=== PATIENT | female | born 1985 | race Caucasian/White ===

== ENCOUNTER 2018-07-21 06:35 | Inpatient (IN) | payer OTHER ==
[2018-07-21] MEDS ORDERED: OXYTOCIN/RINGERS LACTATE 1,000 ML IV PRN (10:42)
[2018-07-21] MEDS ORDERED: LR 1,000 ML IV PRN (10:42)
[2018-07-21] MEDS ORDERED: AMMONIA AROMATIC 1 EACH AMP IH PRN (10:42)
[2018-07-21] MEDS ORDERED: OLIVE OIL 118 ML BTL MISC PRN (10:42)
[2018-07-21] MEDS ORDERED: IBUPROFEN 600 MG TAB PO PRN (10:42)
[2018-07-21] MEDS ORDERED: MISOPROSTOL 200 MCG TAB PO PRN (10:42)
[2018-07-21] MEDS ORDERED: LIDOCAINE 1% 300 MG/30 ML SDV SC PRN (10:42)
[2018-07-21] MEDS ORDERED: EPSOM SALT 454 GM TP PRN (10:42)
[2018-07-21] MEDS ORDERED: TERBUTALINE SULFATE 1 MG/ML VIAL IV PRN (10:42)
--- NOTE | 2018-07-21 10:42 | PDGENHP ---
History and Physical History and Physical: CARE: [facility] HPI: Patient is a 33 yo G 1 P 0 @ 40 weeks who presents to L&D with complaints of strong uterine contractions since 0330 this AM. She denies LOF or bleeding. Reports + movement. EDC: 07/21/18 which is based on LMP: 08/26/17 which is known and consistent with Ultrasound at 7 weeks. Her is complicated by: anxiety, no medications during . Review of Systems: Constitutional: Denies any fever, chills, or fatigue HEENT: denies any visual changes, difficulty swallowing, hearing loss Cardiovascular: Denies any chest pain, palpitations, leg swelling Respiratory: denies any cough, wheezing, or shortness of breath GI: Denies any nausea, vomiting, diarrhea, constipation : denies any dysuria, urgency, frequency, vaginal bleeding Musculoskeletal: denies any muscle or bone pain Skin: denies any rashes Neuro: denies any headache, seizures, lightheadedness, dizziness, or loss of consciousness Psychiatric: denies any depression, anxiety, or SI/HI thoughts HISTORY: Previous OB history: nullip Social history: , works [employer] Family history: mom non-hodgkins lymphoma Past medical history: anxiety, meds in past Past surgical history: none Medications: PNV Allergies (list reaction): NKDA LABS: Rh: )+ ABS: Neg Rubella: Immune HbsAg: NR HIV: NR VDRL: NR 1hr: 99 GC: Neg Chlamydia: Neg Pap: Normal 2013 GBS: neg BMI: (prepreg) 22 PHYSICAL EXAM: Constitutional: WN, A&Ox3 HEENT: normocephalic atraumatic, supple Heart: RRR, no murmur Chest: CTA-B Skin: warm, dry, intact Abdomen: Soft, nontender, gravid SVE: /-1 Extremities: trace edema, negative homans sign Neuro: grossly normal Psych: normal affect assessment: FHT baseline 115, +accels, no decels, moderate variability Contractions: toco q 4-7 min Assessment: 1) 33 yo with IUP@ 40 weeks 2) GBS neg 3) Cat 1 FHR tracing Plan: 1) Admit to L&D 2) Anticipate
[2018-07-21] MEDS ORDERED: LIDOCAINE 1% 300 MG/30 ML SDV ONE (13:27)
[2018-07-21] MEDS ORDERED: TERBUTALINE SULFATE 1 MG/ML VIAL ONE (13:28)
[2018-07-21] MEDS ORDERED: AMMONIA AROMATIC 1 EACH AMP IH ONE (13:28)
[2018-07-21] MEDS ORDERED: OXYTOCIN 10 UNIT/ML VIAL ONE (13:28)
[2018-07-21] MEDS ORDERED: MISOPROSTOL 200 MCG TAB ONE (13:28)
[2018-07-21] MEDS ORDERED: OLIVE OIL 118 ML BTL MISC ONE (13:28)
[2018-07-21 13:39] LABS: PLATELET COUNT 134 10^3/uL (150-400)
--- NOTE | 2018-07-21 14:31 | OBPROG ---
Labor Progress Note Assessment/Plan: Assessment: 1. active labor 2. cat 1 FHT Plan: 1. anticipate 07/21/18 14:29 Subjective/Intrapartum Course: 07/21/18 14:29 pt coping well with ctx. FOB at bedside. States that she is feeling pressure with some contractions, denies LOF. Objective: 07/21/18 12:50 Patient ABO/Rh O POSITIVE 07/21/18 12:50 VSS - SVE Dilation (cm): 6 Effacement (%): 90 Station: -1 Membranes: Intact - Contraction Pattern Assessment Current Contraction Pattern: Regular - FHR Assessment Tello FHR (bpm): 115 FHR Pattern Variability: Moderate FHR Category: 1 Oxytocin Orders Assessment - Pre-Induction/Augmentation Assessment Gestational Age: 40 week(s) and 0 day(s) ICD10 Worksheet Patient Problems: Problems Problem Status Onset Normal labor Acute - ICD10 Problem Qualifiers (1) Normal labor
--- NOTE | 2018-07-21 15:54 | OBPROG ---
Labor Progress Note Assessment/Plan: Assessment: 1. active labor 2. cat 1 FHT Plan: 1. anticipate 07/21/18 14:29 07/21/18 15:53 same as above Subjective/Intrapartum Course: 07/21/18 14:29 pt coping well with ctx. FOB at bedside. States that she is feeling pressure with some contractions, denies LOF. 07/21/18 15:53 pt still coping well with ctx. Using hydrotherapy and partner support with breathing. Declines AROM at this time. Objective: 07/21/18 12:50 Patient ABO/Rh O POSITIVE 07/21/18 12:50 - SVE Dilation (cm): 9 Effacement (%): 90 Station: -1 Membranes: Intact - Contraction Pattern Assessment Current Contraction Pattern: Regular - FHR Assessment Tello FHR (bpm): 115 FHR Pattern Variability: Moderate FHR Category: 1 Oxytocin Orders Assessment - Pre-Induction/Augmentation Assessment Gestational Age: 40 week(s) and 0 day(s) ICD10 Worksheet Patient Problems: Problems Problem Status Onset Normal labor Acute - ICD10 Problem Qualifiers (1) Normal labor
--- NOTE | 2018-07-21 17:44 | OBPROG ---
Labor Progress Note Assessment/Plan: Assessment: 1. active labor 2. cat 1 FHT Plan: 1. anticipate 07/21/18 14:29 07/21/18 15:53 same as above Subjective/Intrapartum Course: 07/21/18 14:29 pt coping well with ctx. FOB at bedside. States that she is feeling pressure with some contractions, denies LOF. 07/21/18 15:53 pt still coping well with ctx. Using hydrotherapy and partner support with breathing. Declines AROM at this time. 07/21/18 17:41 pt feeling very fatigued, "don't think I can keep doing this," discussed option for AROM and trying to manually reduce the cervix. Pt agrees with plan. Objective: 07/21/18 12:50 Patient ABO/Rh O POSITIVE 07/21/18 12:50 - SVE Dilation (cm): 9 Effacement (%): 90 Station: 0 Membranes: AROM Amniotic Fluid Color: Bloody - Contraction Pattern Assessment Current Contraction Pattern: Regular - FHR Assessment Tello FHR (bpm): 125 FHR Pattern Variability: Moderate FHR Category: 1 Oxytocin Orders Assessment - Pre-Induction/Augmentation Assessment Gestational Age: 40 week(s) and 0 day(s) ICD10 Worksheet Patient Problems: Problems Problem Status Onset Normal labor Acute Prolonged first stage of labor Acute - ICD10 Problem Qualifiers (1) Normal labor (2) Prolonged first stage of labor
[2018-07-21] MEDS ORDERED: HYDROCORTISONE 0.5% CREAM TP PRN (20:03)
--- NOTE | 2018-07-21 20:08 | OBDEL ---
Info Type: Vaginal Presentation at Delivery: Vertex L&D Analgesia/Anesthesia Type: None GBS+: No - Hospital Course Intrapartum: 07/21/18 14:29 pt coping well with ctx. FOB at bedside. States that she is feeling pressure with some contractions, denies LOF. 07/21/18 15:53 pt still coping well with ctx. Using hydrotherapy and partner support with breathing. Declines AROM at this time. 07/21/18 17:41 pt feeling very fatigued, "don't think I can keep doing this," discussed option for AROM and trying to manually reduce the cervix. Pt agrees with plan. Indications for Delivery: Spontaneous Labor Vaginal Delivery - Delivery Provider Delivery Physician/CNM: Anabel Chino - Labor and Delivery Onset of Contractions Date: 07/21/18 Onset of Contractions Time: 03:30 Onset of Contractions Type: Spontaneous Rupture of Membranes Date: 07/21/18 Rupture of Membranes Time: 17:30 Rupture of Membranes Type: Artificial Amniotic Fluid Color: Clear, Bloody Dilation Complete Date: 07/21/18 Dilation Complete Time: 18:34 Placenta Delivery Date: 07/21/18 Placenta Delivery Time: 19:21 Total Hours of Labor: 15 Laceration: 1st Degree (bilateral periurethral, L vag) Repair: 3-0, 4-0, Vicryl Vaginal Sponge Count Correct: Yes Vaginal Needle Count Correct: Yes Vaginal Sweep Performed: Yes EBL: 350 Delivery Events: Nuchal Cord (easily reduced) [place] Data ANJU: 07/21/18 Gestational Age: 40 week(s) and 0 day(s) Tello Delivery Date: 07/21/18 Delivery Time: 19:14 Sex of Infant: Female Score (1 Min): 8 Score (5 Min): 8 ICD10 Worksheet Patient Problems: Problems Problem Status Onset (normal spontaneous vaginal delivery) Acute Normal labor Acute Prolonged first stage of labor Acute - ICD10 Problem Qualifiers (1) Normal labor (2) Prolonged first stage of labor (3) (normal spontaneous vaginal delivery)
[2018-07-21] MEDS ORDERED: OXYTOCIN/RINGERS LACTATE 500 ML IV SCH (20:30)
[2018-07-22] MEDS ORDERED: METHYLERGONOVINE MAL 0.2 MG/ML INJ ONE (01:36)
[2018-07-22] MEDS ORDERED: METHYLERGONOVINE MAL 0.2 MG/ML INJ IM ONE (02:00)
[2018-07-22] MEDS ORDERED: fentaNYL 100 MCG/2 ML INJ IVP ONE (02:12)
--- NOTE | 2018-07-22 02:55 | OBPP ---
Progress Note Assessment/Plan: Assessment: 1. active labor 2. cat 1 FHT Plan: 1. anticipate 07/21/18 14:29 07/21/18 15:53 same as above 07/22/18 02:52 Assessment 1. PP bleeding Plan Pt received 50 mcg of fentanyl IV for pain. Vagina and perineum inspected and cervix appears intact. L vaginal wall laceration visualized and repaired with Dr. Wagner's assistance with 3.0 vicryl and local anesthetic. Appears to be hemostatic at this time. Subjective/ Course: 07/22/18 02:53 Called to assess patient d/t abnormal PP bleeding. Pt has received IM pitocin, cytotec, methergine and IV pitocin. Nurse reports that she is still having small to moderate continued flow but fundus remains firm. Objective: 07/21/18 12:50 Patient ABO/Rh O POSITIVE 07/21/18 12:50 Temp Pulse Resp BP Pulse Ox 36.9 C 59 L 18 111/60 07/22/18 00:02 07/22/18 00:02 07/22/18 00:02 07/22/18 00:02 VSS Uterine Position/Fundal Height: At Umbilicus Uterine Tone: Firm
[2018-07-22 06:30] LABS: PLATELET COUNT 150 10^3/uL (150-400)
[2018-07-22] MEDS: ACETAMINOPHEN 325 MG TAB PO PRN ×3 (06:47→20:09)
[2018-07-22] MEDS: IBUPROFEN 600 MG TAB PO PRN ×3 (06:48→20:10)
--- NOTE | 2018-07-22 10:12 | OBPP ---
Progress Note Assessment/Plan: Assessment: 1. 2. PP day 1 3. breast feeding mom Plan: 1. normal PP care 2. d/c home tomorrow 3. support today Subjective/ Course: 07/22/18 02:53 Called to assess patient d/t abnormal PP bleeding. Pt has received IM pitocin, cytotec, methergine and IV pitocin. Nurse reports that she is still having small to moderate continued flow but fundus remains firm. 07/22/18 10:09 no c/o today. bleeding is normal. pain management effective. voiding without difficulty. Objective: 07/22/18 06:20 Patient ABO/Rh O POSITIVE 07/21/18 12:50 Temp Pulse Resp BP Pulse Ox 36.5 C 55 L 16 106/70 96 07/22/18 08:00 07/22/18 08:00 07/22/18 08:00 07/22/18 08:00 07/22/18 08:00 vss, afebrile Uterine Position/Fundal Height: At Umbilicus Uterine Tone: Firm
[2018-07-22] MEDS: DOCUSATE SODIUM 100 MG CAP PO PRN (14:05)
[2018-07-23] MEDS: ACETAMINOPHEN 325 MG TAB PO PRN ×2 (06:15→12:43)
[2018-07-23] MEDS: IBUPROFEN 600 MG TAB PO PRN ×2 (06:15→12:43)
[2018-07-23] MEDS: DOCUSATE SODIUM 100 MG CAP PO PRN (08:38)
[2018-07-23 08:49] VITALS: BP 110/71
--- NOTE | 2018-07-23 11:05 | OBGCSDC ---
General Delivery Information - General Info : 1 Para: 1 Abortions: 0 Type: Vaginal L&D Analgesia/Anesthesia Type: None Admission Date: 07/22/18 Labs: Patient ABO/Rh O POSITIVE 07/21/18 12:50 Hct 37.7 % (38.0-47.0) L 07/22/18 06:20 - Hospital Course Intrapartum: 07/21/18 14:29 pt coping well with ctx. FOB at bedside. States that she is feeling pressure with some contractions, denies LOF. 07/21/18 15:53 pt still coping well with ctx. Using hydrotherapy and partner support with breathing. Declines AROM at this time. 07/21/18 17:41 pt feeling very fatigued, "don't think I can keep doing this," discussed option for AROM and trying to manually reduce the cervix. Pt agrees with plan. : 07/22/18 02:53 Called to assess patient d/t abnormal PP bleeding. Pt has received IM pitocin, cytotec, methergine and IV pitocin. Nurse reports that she is still having small to moderate continued flow but fundus remains firm. 07/22/18 10:09 no c/o today. bleeding is normal. pain management effective. voiding without difficulty. 07/23/18 11:04 S) Pt doing well, reports min pain and bleeding. she is ambulating and voiding without difficulty. She is . She desires discharge home today. O) VSS, afebrile constitutional: WNWF, A&Ox3 HEENT: normocephalic, atraumatic, supple Heart: RRR, No murmur Chest: CTA-B Abdomen: Soft, nontender Uterus: Firm at U-2 Lochia: Minimal rubra Perineum: Intact, healing well Extremities: Trace edema, and negative Jaimee's sign Neuro: Grossly normal A) 33 year-old P1 S/P PPD#2 P) Discharge home today Continue Pelvic rest x6wks Discussed danger signs (infection, preeclampsia, depression, heavy bleeding, etc) RTO in 2/4/6 weeks Vaginal - Delivery Provider Delivery Physician/CNM: Anabel Chino - Diagnosis Labor: Spontaneous Rupture of Membranes Type: Artificial Amniotic Fluid Color: Clear, Bloody Laceration: 1st Degree (bilateral periurethral, L vag) Repair: 3-0, 4-0, Vicryl Delivery Events: Nuchal Cord (easily reduced) - Delivery EBL: 350 [place] Data ANJU: 07/21/18 Gestational Age: 40 week(s) and 2 day(s) Tello Delivery Date: 07/22/18 Delivery Time: 21:19 Sex of : Female [place] Weight (gm): 3150 g Score (1 Min): 8 Score (5 Min): 8 Discharge Information - Discharge Information Prescriptions: Ibuprofen [Motrin (*)] 600 mg PO Q6HRS PRN #40 tab PRN Reason: Pain, Mild Able To Take Po Docusate Sodium [Colace 100 MG (*)] 100 mg PO BID PRN #60 cap PRN Reason: Constipation Condition: Good
== END 2018-07-23 15:15 | disposition home or self-care (01) | DRG 807 ==
LOC: FLD 06:35 → FOB 07-22 06:40 → OBSVTOIN 07-22 09:13
PROVIDERS: ADMIT Advanced Practice Midwife; ATTEND Advanced Practice Midwife
DX: O71.82 Other specified trauma to perineum and vulva (principal); O99.344 Other mental disorders complicating childbirth; F41.9 Anxiety disorder, unspecified; O69.81X0 Labor and delivery complicated by cord around neck, without compression, not applicable or unspecified; Z37.0 Single live birth; Z3A.40 40 weeks gestation of pregnancy
CPT/HCPCS: J2210; J2590; J3010; J3105